=== PATIENT | female | born 2000 | race Caucasian/White ===

== ENCOUNTER → 2024-04-28 13:59 | Outpatient (REF) | payer BC, SELFPAY | LOC: CPAP 13:59 | PROVIDERS: ATTENDING PHYSICIAN Nurse Practitioner Adult Health | DX: Z01.419 Encounter for gynecological examination (general) (routine) without abnormal findings (principal); Z11.3 Encounter for screening for infections with a predominantly sexual mode of transmission | CPT/HCPCS: 87491; 87591 ==

== ENCOUNTER → 2025-05-04 18:04 | Outpatient (REF) | payer BC, SELFPAY | LOC: CLAB 18:04 | PROVIDERS: ATTENDING PHYSICIAN Nurse Practitioner Adult Health | DX: Z01.419 Encounter for gynecological examination (general) (routine) without abnormal findings (principal); Z11.3 Encounter for screening for infections with a predominantly sexual mode of transmission | CPT/HCPCS: 87491; 87591 ==